=== PATIENT | male | born 1960 | race Caucasian/White ===

== ENCOUNTER 2025-03-29 18:20 | Emergency (ER) | payer BC ==
[~2025-03-29] VITALS: Ht 182.9 cm; Wt 81.6 kg
[2025-03-29 18:32] VITALS: BP 163/94
[2025-03-29] MEDS ORDERED: LIDOCAINE 2% (GLYDO= UROJET) 10 ML JELLY MM ONE (18:36)
[2025-03-29] MEDS: LIDOCAINE 2% (GLYDO= UROJET) 10 ML JELLY MM ONE (18:45)
[2025-03-29 19:43] LABS: *BILIRUBIN,URIN NEGATIVE (NEGATIVE); *BLOOD, URINE 1+ (NEGATIVE); *CLARITY,URINE CLEAR (CLEAR); *COLOR,URINE YELLOW (YELLOW); *KETONES,URINE NEGATIVE (NEGATIVE); *PROTEIN,URINE NEGATIVE (NEGATIVE); *UROBILINOGEN,URINE 0.2 E.U./dl (NORMAL); LEUKOCYTE ESTERASE ,URINE 1+ (NEGATIVE); NITRITE, URINE NEGATIVE (NEGATIVE); UGLUCOSE NEGATIVE (NEGATIVE)
[2025-03-29 19:58] LABS: SQUAMOUS EPITHELIAL CELL,UR FEW /HPF (NONE SEEN)
[2025-03-29 21:55] VITALS: BP 155/90; O2SAT 99
== END 2025-03-29 19:30 | disposition home or self-care (01) ==
LOC: ER 18:47
DX: R33.9 Retention of urine, unspecified (principal); R30.0 Dysuria; N40.1 Benign prostatic hyperplasia with lower urinary tract symptoms; Z85.118 Personal history of other malignant neoplasm of bronchus and lung
CPT/HCPCS: 51702; 87077; 87086; A4606; A4663